=== PATIENT | male | born 1995 | race Caucasian/White ===

== ENCOUNTER 2017-01-12 12:59 | Emergency (ER) | payer OTHER ==
[~2017-01-12] VITALS: Ht 180.3 cm; Wt 75.0 kg
[~2017-01-12 12:59] MED LIST: NO HOME MEDICATIONS
[2017-01-12 13:14] VITALS: TEMP 99
[2017-01-12] MEDS ORDERED: NORCO 325 MG-51 TAB PO (14:50)
[2017-01-12 16:22] VITALS: BP 112/68; PULSE 62
== END 2017-01-12 16:38 | disposition home or self-care (01) ==
LOC: COL.ER 12:59
DX: S93.401A Sprain of unspecified ligament of right ankle, initial encounter (principal); X50.0XXA Overexertion from strenuous movement or load, initial encounter; W18.39XA Other fall on same level, initial encounter; Y93.67 Activity, basketball